=== PATIENT | female | born 1945 | race Caucasian/White ===

== ENCOUNTER 2016-06-21 16:31 | Inpatient (IN) | payer MEDICARE ==
[2016-06-21] MEDS ORDERED: RINGERS SOLUTION,LACTATED 1,000 ML IV ONE ×2 (16:49→17:57)
--- NOTE | 2016-06-21 17:34 | ER Document Report ---
ED General <ELINA ORTIZ - Last Filed: 06/21/16 20:38> - General Mode of Arrival: Medic Information source: Patient, Relative <DESMOND ISBELL Josselyn - Last Filed: 06/21/16 23:34> - General Chief Complaint: General Weakness Stated Complaint: WEAKNESS Notes: This is a 71-year-old female who [place] out of [place] but is here visiting a friend and family who was brought in by EMS after being found on the floor today. The patient tells me that she will awoke this morning at about 5:30 with chills and shivering. She states that at about 06 100 she went to the bathroom, but upon inability to the bathroom she felt dizzy lost her balance and fell backwards hitting her left shoulder. She denies hitting her head. She did not lose consciousness. She was unable to get back up and so she laid on the floor from about 6 AM until about 11:30 when her friend knocked on the door to check on her. EMS reports an oral temp of 101 and a low blood pressure of 80s over 60s. Patient states that she has not been sick recently. She denies any pain at this point. She has had no cough or congestion and no vomiting or diarrhea. She does state that she has had mild dysuria for a few days. (DESMOND ISBELL) - Related Data Allergies/Adverse Reactions: No Known Allergies Allergy (Unverified 06/21/16 18:06) Home Medications: Current Home Medications Acetaminophen [Tylenol 325 mg Tablet] 325 mg PO Q6HP PRN 06/21/16 [History] Aspirin [Aspirin 325 mg Tablet] 325 mg PO DAILY 06/21/16 [History] Bisoprolol Fumarate/Hctz [Ziac 2.5-6.25 mg Tablet] 1 tab PO QAM 06/21/16 [ History] Celecoxib [Celebrex 200 mg Capsule] 200 mg PO QAM 06/21/16 [History] Cholecalciferol (Vitamin D3) [Vitamin D3 1000 Unit Tablet] 1,000 unit PO DAILY 06/21/16 [History] Docusate Sodium [Dulcolax Stool Softener] 1 cap PO PRN PRN 06/21/16 [History] Hydrocortisone [Cortef 10 mg Tablet] 10 mg PO QPM 06/21/16 [History] Hydrocortisone [Cortef] 20 mg PO DAILY 06/21/16 [History] Lansoprazole [Prevacid 30 mg Odt Tablet] 30 mg PO QAM 06/21/16 [History] Letrozole [Femara 2.5 mg Tablet] 2.5 mg PO QPM 06/21/16 [History] Lisinopril [Prinivil 5 mg Tablet] 5 mg PO QPM 06/21/16 [History] Milnacipran HCl [Savella] 50 mg PO BID 06/21/16 [History] Multivits-Min/Iron/FA/Lutein [Centrum Silver Women Tablet] 1 tab PO DAILY [History] Pregabalin [Lyrica 75 mg Capsule] 75 mg PO Q12 06/21/16 [History] Past Medical History - General Information source: Patient - Social History Smoking Status: Never Smoker Family History: Reviewed & Not Pertinent - Past Medical History Cardiac Medical History: Reports: Hx Hypertension Endocrine Medical History: Reports: Other - Adrenal insufficiency Surgical Hx: Other - adrenalectomy <DESMOND ISBELL - Last Filed: 06/21/16 23:34> Physical Exam <ELINA ORTIZ - Last Filed: 06/21/16 20:38> <DESMOND ISBELL - Last Filed: 06/21/16 23:34> - Vital signs Vitals: Resp BP 18 88/44 L 06/21/16 16:40 06/21/16 16:40 (ELINA ORTIZ) - Notes Notes: Patient was reassessed after the second liter of lactated Ringer fluid bolus and initial had a good response with her blood pressure raising to the knot to 95-98 systolic however patient was noted to have another blood pressure in the mid 80 systolic and so decision was made to place a left internal jugular central venous catheter. This was this was placed and I discussed her diagnosis of sepsis and multiple rib fractures with the patient and the daughter. Also discussed the case with Dr. Wilner Farias who will admit her to the medical ICU here. I suspect that the source of infection is coming from the patient's urine however because of her difficult anatomy and we have been unable to place a Barrientos catheter to obtain a urine specimen as of this time. PHYSICAL EXAMINATION: GENERAL: ill appearing elderly female, flushed cheeks, seems sleepy but will respond to voice and answer questions appropriately HEAD: Atraumatic, normocephalic. EYES: Pupils equal round and reactive to light, extraocular movements intact, sclera anicteric, conjunctiva are normal. ENT: nares patent, oropharynx clear without exudates. Moist mucous membranes. NECK: Normal range of motion, supple without lymphadenopathy LUNGS: Breath sounds clear to auscultation bilaterally and equal. No wheezes rales or rhonchi. CHEST: Status post left mastectomy. Tenderness to palpation to the left anterior chest. HEART: Regular rate and rhythm without murmurs ABDOMEN: Soft, nontender, normoactive bowel sounds. No guarding, no rebound. No masses appreciated. EXTREMITIES: Normal range of motion, no pitting or edema. No cyanosis. NEUROLOGICAL: Cranial nerves grossly intact. Moves all 4 extremities spontaneously and upon command with equal strength PSYCH: Normal mood, normal affect. SKIN: Warm, Dry, normal turgor, no rashes or lesions noted. (DESMOND ISBELL) Course - Laboratory Result Diagrams: 06/21/16 16:55 06/21/16 16:55 <ELINA ORTZI - Last Filed: 06/21/16 20:38> - Laboratory Result Diagrams: 06/21/16 16:55 06/21/16 16:55 - Diagnostic Test Radiology reviewed: Reports reviewed <DESMOND ISBELL - Last Filed: 06/21/16 23:34> - Re-evaluation Re-evalutation: 06/21/16 20:52 Patient was reassessed after the second liter of lactated Ringer fluid bolus and initial had a good response with her blood pressure raising to the knot to 95-98 systolic however patient was noted to have another blood pressure in the mid 80 systolic and so decision was made to place a left internal jugular central venous catheter. This was this was placed and I discussed her diagnosis of sepsis and multiple rib fractures with the patient and the daughter. Also discussed the case with Dr. Wilner Farias who will admit her to the medical ICU here. I suspect that the source of infection is coming from the patient's urine however because of her difficult anatomy and we have been unable to place a Barrientos catheter to obtain a urine specimen as of this time. 06/21/16 21:39 Patient was reassessed. She is resting comfortably. She is breathing easy and her sats are 98% on room air. Her blood pressure has improved to 103/70. (DESMOND ISBELL) - Vital Signs Vital signs: Temp Pulse Resp BP Pulse Ox 20 100/55 L 100 06/21/16 21:41 06/21/16 21:41 06/21/16 21:41 (ELINA ORTIZ) - Laboratory Laboratory results interpreted by me: 06/21/16 06/21/16 06/21/16 16:55 16:55 16:55 WBC 26.9 H Hgb 11.5 L Hct 35.2 L Seg Neuts % (Manual) 83 H Lymphocytes % (Manual) 5 L Metamyelocytes % 1 H Abs Neuts (Manual) 23.7 H Abs Basophils (Manual) 0.3 H Potassium 3.3 L BUN 24 H Est GFR ( Amer) 59 L Est GFR (Non-Af Amer) 49 L Lactic Acid 2.5 H AST 44 H (ELINA ORTIZ) - Diagnostic Test Radiology results interpreted by me: 06/21/16 20:52 CT of the head was negative. Chest x-ray was negative for acute process. X- ray of the left shoulder demonstrated no shoulder fracture however patient is noted to have acute rib fractures of ribs 3, 4, 5, 6, 7 and possibly 8. (DESMOND ISBELL) - EKG Interpretation by Me Additional EKG results interpreted by me: 06/21/16 20:53 EKG done at 1746 demonstrates normal sinus rhythm at a rate of 72 with evidence of LVH there is no ST elevation or depression. (DESMOND ISBELL) Procedures - Central Line Left Internal jugular Time completed: 08:30 Consent obtained: Yes - verbal and written Central line pre-insertion: Sterile PPE donned, Chloraprep applied, Sterile drapes applied Central line lumen type: Triple Anesthetic type: 1% Lidocaine mL's of anesthesia: 3 Ultrasound guided: Yes CM at insertion site: 20 Line secured with sutures: Yes Central line post-insertion: Blood return from lumens, Biopatch applied, Sutured , Sterile dressing applied, Position confirmed w/ CXR Number of attempts: 1 Complications: No <ELINA ORTIZ - Last Filed: 06/21/16 20:38> Critical Care Note <ELINA ORTIZ - Last Filed: 06/21/16 20:38> - Critical Care Note Total time excluding time spent on procedures (mins): 45 <DESMOND ISBELL - Last Filed: 06/21/16 23:34> - Critical Care Note Comments: minutes of critical care time spent in direct contact evaluating and reevaluating the patient, treating symptoms, reviewing labs and studies and speaking with family and consultants excluding any procedures (DESMOND ISBELL) Discharge <ELINA ORTIZ - Last Filed: 06/21/16 20:38> - [facility] <DESMOND ISBELL - Last Filed: 06/21/16 23:34> - Discharge Clinical Impression: Sepsis associated hypotension, Multiple fractures of rib involving four or more ribs, History of adrenal insufficiency Condition: Serious Disposition: ADMITTED INPATIENT
[2016-06-21 17:37] LABS: HEMATOCRIT 35.2 % (36.0-47.0); HEMOGLOBIN 11.5 g/dL (12.0-15.5); HGB HCT DIFFERENCE -0.7; MEAN CORPUSCULAR HEMOGLOBIN 30.6 pg (27.0-33.4); MEAN CORPUSCULAR HGB CONC 32.6 g/dL (32.0-36.0); MEAN CORPUSCULAR VOLUME 94 fl (80-97); RED BLOOD COUNT 3.76 10^6/uL (3.72-5.28); RED CELL DISTRIBUTION WIDTH 12.2 % (11.5-14.0); WHITE BLOOD COUNT 26.9 10^3/uL (4.0-10.5)
[2016-06-21 17:43] LABS: PROTHROMBIN TIME 14.3 SEC (11.4-15.4)
[2016-06-21 17:44] LABS: ALANINE AMINOTRANSFERASE 38 U/L (9-52); ALKALINE PHOSPHATASE 67 U/L (38-126); ANION GAP 11 (5-19); ASPARTATE AMINO TRANSFERASE 44 U/L (14-36); BILIRUBIN,TOTAL 0.8 mg/dL (0.2-1.3); BLOOD UREA NITROGEN 24 mg/dL (7-20); CALCIUM 9.4 mg/dL (8.4-10.2); CARBON DIOXIDE 28 mmol/L (22-30); CHLORIDE 100 mmol/L (98-107); GLUCOSE 84 mg/dL (75-110); POTASSIUM 3.3 mmol/L (3.6-5.0); SODIUM 138.7 mmol/L (137-145); TOTAL PROTEIN 6.7 g/dL (6.3-8.2)
[2016-06-21] MEDS ORDERED: CEFTRIAXONE 1 GM/D5W RTU 50 ML IV ONE (17:55)
[2016-06-21] MEDS ORDERED: HYDROCORTISONE SOD SUCCINATE INJ/PF 100 MG/2 ML SDV IV ONE (17:56)
[2016-06-21 18:05] LABS: BAND NEUTROPHILS % (MANUAL) 4 % (3-5); BASOPHILS % (MANUAL) 1 % (0-2); EOSINOPHILS % (MANUAL) 0 % (0-6); LYMPHOCYTES % (MANUAL) 5 % (13-45); TOTAL CELLS COUNTED 100
[2016-06-21 18:07] LABS: OVALOCYTES SLIGHT; POIKILOCYTOSIS SLIGHT
[2016-06-21] MEDS ORDERED: LEVOFLOXACIN 750 MG/D5W RTU 150 ML IV ONE (19:04)
[2016-06-21 20:51] LABS: VENOUS BLOOD BASE EXCESS 1.2 mmol/L; VENOUS BLOOD HCO3 25.9 mmol/L (20-32); VENOUS BLOOD PCO2 41.2 mmHg (35-63); VENOUS BLOOD PH 7.42 (7.30-7.42)
[2016-06-21] MEDS ORDERED: IPRATROPIUM/ALBUTEROL 0.5-2.5 MG/3 ML AMPUL NEB PRN (20:53)
[2016-06-21] MEDS ORDERED: HYDRALAZINE HCL INJ/PF 20 MG/1 ML SDV IV PRN (20:53)
[2016-06-21] MEDS ORDERED: ONDANSETRON HCL INJ/PF 4 MG/2 ML SDV IV PRN (20:53)
[2016-06-21] MEDS ORDERED: ACETAMINOPHEN 325 MG TABLET PO PRN (20:53)
[2016-06-21] MEDS ORDERED: MAGNESIUM HYDROXIDE SUSP 30 ML UDCUP PO PRN (20:53)
[2016-06-21] MEDS ORDERED: POTASSIUM CHLORIDE 10 MEQ TABLET.SA PO ONE (20:53)
[2016-06-21] MEDS ORDERED: VANCOMYCIN HCL 1,500 MG in DEXTROSE 5%-WATER 250 ML IV ONE (21:18)
[2016-06-21] MEDS ORDERED: VANCOMYCIN HCL 0 MG in DEXTROSE 5%-WATER 250 ML IV NR (21:30)
[2016-06-21] MEDS ORDERED: VANCOMYCIN HCL 750 MG in DEXTROSE 5%-WATER 250 ML IV SCH (22:00)
--- NOTE | 2016-06-21 22:17 | EKG REPORT ---
SEVERITY:- ABNORMAL ECG - SINUS RHYTHM LEFT VENTRICULAR HYPERTROPHY : Confirmed by: Niya Pagan 21-Jun-2016 22:16:44
[2016-06-21] MEDS: HYDROCORTISONE SOD SUCCINATE INJ/PF 100 MG/2 ML SDV IV SCH (22:20)
[2016-06-21] MEDS: NORMAL SALINE 1000 ML 1,000 ML IV SCH (22:21)
[2016-06-21] MEDS: HEPARIN SOD (PORCINE) 5,000 UNIT/ML 1 ML SYRINGE SUBCUT SCH (22:24)
[2016-06-22 00:23] LABS: APPEARANCE,URINE CLOUDY; BILIRUBIN,URINE NEGATIVE (NEGATIVE); GLUCOSE, URINE NEGATIVE (NEGATIVE); KETONES,URINE TRACE mg/dL (NEGATIVE); LEUKOCYTE ESTERASE,URINE TRACE (NEGATIVE); NITRITE,URINE NEGATIVE (NEGATIVE); PROTEIN,URINE 30 mg/dL (NEGATIVE); URINE SPECIFIC GRAVITY 1.014; UROBILINOGEN,URINE NEGATIVE mg/dL (<2.0)
[2016-06-22] MEDS: NORMAL SALINE 1000 ML 1,000 ML IV SCH ×2 (03:13→07:07)
[2016-06-22 04:50] LABS: ANION GAP 9 (5-19); BLOOD UREA NITROGEN 21 mg/dL (7-20); CALCIUM 8.6 mg/dL (8.4-10.2); CARBON DIOXIDE 23 mmol/L (22-30); CHLORIDE 106 mmol/L (98-107); CREATININE RESULT 0.68 mg/dL (0.52-1.25); GLUCOSE 111 mg/dL (75-110); POTASSIUM 4.2 mmol/L (3.6-5.0); SODIUM 138.2 mmol/L (137-145)
--- NOTE | 2016-06-22 04:55 | PDOC H&P ---
History of Present Illness Admission Date/PCP: 06/21/16 20:53 Patient complains of: Hypotension and fever History of Present Illness: ASA CARLSON is a 71 year old female with a past Sunil history of adrenal insufficiency, rest cancer status post left-sided mastectomy remotely, pulmonary emboli and fibromyalgia. Who had been her usual state of health until approximately 48 hours prior to presentation state she had some generalized weakness and fever of 101.0. She attributed this to a possible urinary tract infection despite lack of polyuria, dysuria or malodorous urine. She subsequently sustained a fall preceded by weakness and dizziness without palpitations or headache, and denied loss of consciousness or head trauma. However she was unable to stand and was on the ground for at least 3 hours and brought to the emergency room after discovered by her neighbor with questionable slurred speech and left-sided chest pain. In the emergency room she is found to have hypotension in the 80s systolic with tachycardia and left- sided rib fractures [id number] and 8 without a flail chest. Nor is there an obvious source of infection despite an elevated white blood cell count of 27. She started on an IV fluid challenge IV Solu-Cortef IV antibiotics and referred to the hospitalist for admission. Patient otherwise denies recent fall, she was treated for a right-sided dental abscess approximately a month ago which has subsequently resolved she denies any change in home medications. She appears nontoxic Past Medical History Endocrine Medical History: Reports: Other - Adrenal insufficiency Malignancy Medical History: Reports: Breast Cancer Musculoskeltal Medical History: Reports: Arthritis - OA Psychiatric Medical History: Reports: Other - Fibromyalgia Past Surgical History Past Surgical History: Reports: Mastectomy Social History Information Source: Patient, Relative Lives with: Family Smoking Status: Never Smoker Frequency of Alcohol Use: Rare Hx Recreational Drug Use: No Drugs: None Hx Prescription Drug Abuse: No - Advance Directive Resuscitation Status: Full Code Family History Family History: Reviewed & Not Pertinent, Hypertension Parental Family History Reviewed: Yes Children Family History Reviewed: Yes Sibling(s) Family History Reviewed.: Yes Medication/Allergy Home Medications: Acetaminophen [Tylenol 325 mg Tablet] 325 mg PO Q6HP PRN 06/21/16 Aspirin [Aspirin 325 mg Tablet] 325 mg PO DAILY 06/21/16 Bisoprolol Fumarate/Hctz [Ziac 2.5-6.25 mg Tablet] 1 tab PO QAM 06/21/16 Celecoxib [Celebrex 200 mg Capsule] 200 mg PO QAM 06/21/16 Cholecalciferol (Vitamin D3) [Vitamin D3 1000 Unit Tablet] 1,000 unit PO DAILY 06/21/16 Docusate Sodium [Dulcolax Stool Softener] 1 cap PO PRN PRN 06/21/16 Hydrocortisone [Cortef 10 mg Tablet] 10 mg PO QPM 06/21/16 Hydrocortisone [Cortef] 20 mg PO DAILY 06/21/16 Lansoprazole [Prevacid 30 mg Odt Tablet] 30 mg PO QAM 06/21/16 Letrozole [Femara 2.5 mg Tablet] 2.5 mg PO QPM 06/21/16 Lisinopril [Prinivil 5 mg Tablet] 5 mg PO QPM 06/21/16 Milnacipran HCl [Savella] 50 mg PO BID 06/21/16 Multivits-Min/Iron/FA/Lutein [Centrum Silver Women Tablet] 1 tab PO DAILY Pregabalin [Lyrica 75 mg Capsule] 75 mg PO Q12 06/21/16 Allergies/Adverse Reactions: No Known Allergies Allergy (Unverified 06/21/16 18:06) Review of Systems Constitutional: ABSENT: chills, fever(s), headache(s), weight gain, weight loss Eyes: ABSENT: visual disturbances Ears: ABSENT: hearing changes Cardiovascular: ABSENT: chest pain, dyspnea on exertion, edema, orthropnea, palpitations Respiratory: ABSENT: cough, hemoptysis Gastrointestinal: ABSENT: abdominal pain, constipation, diarrhea, hematemesis, hematochezia, nausea, vomiting Genitourinary: ABSENT: dysuria, hematuria Musculoskeletal: ABSENT: joint swelling Integumentary: ABSENT: rash, wounds Neurological: ABSENT: abnormal gait, abnormal speech, confusion, dizziness, focal weakness, syncope Psychiatric: ABSENT: anxiety, depression, homidical ideation, suicidal ideation Endocrine: ABSENT: cold intolerance, heat intolerance, polydipsia, polyuria Hematologic/Lymphatic: ABSENT: easy bleeding, easy bruising Physical Exam Vital Signs: Temp Pulse Resp BP Pulse Ox 97.8 F 74 16 96/53 L 98 06/22/16 03:11 06/22/16 03:11 06/22/16 03:11 06/22/16 03:11 06/22/16 03:11 General appearance: PRESENT: cooperative, mild distress. ABSENT: disheveled, hard of hearing Head exam: PRESENT: atraumatic, normocephalic Eye exam: PRESENT: conjunctiva pink, EOMI, PERRLA. ABSENT: scleral icterus Ear exam: PRESENT: normal external ear exam Mouth exam: PRESENT: moist, tongue midline Neck exam: ABSENT: carotid bruit, JVD, lymphadenopathy, thyromegaly Respiratory exam: PRESENT: chest wall tenderness, crackles, tachypnea. ABSENT: prolonged expiratory phas, rales, retraction, rhonchi, stridor, symmetrical Cardiovascular exam: PRESENT: RRR. ABSENT: diastolic murmur, rubs, systolic murmur Pulses: PRESENT: normal dorsalis pedis pul Vascular exam: PRESENT: pallor GI/Abdominal exam: PRESENT: normal bowel sounds, soft. ABSENT: distended, guarding, mass, organolmegaly, rebound, tenderness Rectal exam: PRESENT: deferred Extremities exam: PRESENT: full ROM. ABSENT: calf tenderness, clubbing, pedal edema Neurological exam: PRESENT: alert, awake, oriented to person, oriented to place , oriented to time, oriented to situation, CN II-XII grossly intact. ABSENT: motor sensory deficit Psychiatric exam: PRESENT: appropriate affect, normal mood. ABSENT: homicidal ideation, suicidal ideation Skin exam: PRESENT: dry, intact, warm. ABSENT: cyanosis, rash Results Laboratory Results: 06/21/16 06/21/16 21:43 23:54 Lactic Acid 0.9 Urine Color YELLOW Urine Appearance CLOUDY Urine pH 5.0 Ur Specific [place] 1.014 Urine Protein 30 H Urine Glucose (UA) NEGATIVE Urine Ketones TRACE H Urine Blood SMALL H Urine Nitrite NEGATIVE Ur Leukocyte Esterase TRACE H Urine WBC (Auto) 11 Urine RBC (Auto) 2 Impressions: Head CT 06/21/16 17:51 IMPRESSION: MILD CHRONIC CHANGES OF ATROPHY AND MICROVASCULAR ISCHEMIA. NO ACUTE PROCESS. Shoulder X-Ray 06/21/16 17:54 IMPRESSION: 1. Osteopenia. 2. Multiple left-sided rib fractures. Chest X-Ray 06/21/16 20:33 IMPRESSION: New left IJ central venous catheter with tip overlying the RA -SVC junction. No pneumothorax or acute findings otherwise. Assessment & Plan - Diagnosis (1) Sepsis associated hypotension Is this a current diagnosis for this admission?: YesPlan: Unclear source given her complicated history of adrenal insufficiency she is on broad-spectrum antibiotics and IV fluid challenge, follow-up blood culture and labs. (2) History of adrenal insufficiency Is this a current diagnosis for this admission?: YesPlan: Given acute distress and hypotension she is on stress dose Solu-Cortef IV (3) Multiple fractures of rib involving four or more ribs Is this a current diagnosis for this admission?: YesPlan: Supportive care and incentive spirometry (4) Pulmonary emboli Is this a current diagnosis for this admission?: YesPlan: It is unclear whether her leukocytosis is result of her fall and a stress response as she is without fever, given a history of pulmonary emboli not on anticoagulation differential diagnosis of hypotension includes recurrent PE and subsequently will obtain a CTA for evaluation
[2016-06-22] MEDS: HYDROCORTISONE SOD SUCCINATE INJ/PF 100 MG/2 ML SDV IV SCH ×2 (05:54→17:45)
[2016-06-22] MEDS: HEPARIN SOD (PORCINE) 5,000 UNIT/ML 1 ML SYRINGE SUBCUT SCH ×3 (05:54→23:07)
[2016-06-22 05:59] LABS: HEMATOCRIT 28.5 % (36.0-47.0); HEMOGLOBIN 9.6 g/dL (12.0-15.5); HGB HCT DIFFERENCE 0.3; MEAN CORPUSCULAR HEMOGLOBIN 31.5 pg (27.0-33.4); MEAN CORPUSCULAR HGB CONC 33.7 g/dL (32.0-36.0); MEAN CORPUSCULAR VOLUME 93 fl (80-97); RED BLOOD COUNT 3.06 10^6/uL (3.72-5.28); RED CELL DISTRIBUTION WIDTH 12.3 % (11.5-14.0)
[2016-06-22 06:52] LABS: BAND NEUTROPHILS % (MANUAL) 2 % (3-5); BASOPHILS % (MANUAL) 0 % (0-2); EOSINOPHILS % (MANUAL) 0 % (0-6); LYMPHOCYTES % (MANUAL) 8 % (13-45); TOTAL CELLS COUNTED 100
[2016-06-22 06:54] LABS: OVALOCYTES SLIGHT; PLATELET CLUMPS PRESENT; TOXIC VACUOLATION PRESENT
[2016-06-22] MEDS ORDERED: IPRATROPIUM/ALBUTEROL 0.5-2.5 MG/3 ML AMPUL NEB SCH (08:00)
[2016-06-22] MEDS ORDERED: OXYCODONE HCL IR 5 MG TABLET PO PRN (10:05)
[2016-06-22] MEDS: LANSOPRAZOLE 30 MG TAB.RAP.DR PO SCH (10:41)
[2016-06-22] MEDS: ASPIRIN 325 MG TABLET PO SCH (10:42)
[2016-06-22] MEDS: DOCUSATE SODIUM 100 MG CAPSULE PO SCH ×2 (10:42→17:46)
[2016-06-22] MEDS: VANCOMYCIN HCL 750 MG in DEXTROSE 5%-WATER 250 ML IV SCH ×2 (10:44→23:06)
[2016-06-22] MEDS ORDERED: DOCUSATE SODIUM 100 MG CAPSULE PO PRN (13:14)
[2016-06-22] MEDS ORDERED: ACETAMINOPHEN 325 MG TABLET PO PRN (13:14)
--- NOTE | 2016-06-22 13:22 | PDOC PROGRESS REPORT ---
Subjective Progress Note for:: 06/22/16 Subjective:: Patient is complaining of pain left chest wall when she moves No pleuritic chest pain no palpitations no fever no chills Her blood pressure is now normal She has no dysuria no abdominal pain Physical Exam Vital Signs: Temp Pulse Resp BP Pulse Ox 99.2 F 82 18 123/57 L 100 06/22/16 11:22 06/22/16 11:22 06/22/16 11:22 06/22/16 11:22 06/22/16 11:22 Intake & Output 06/21/16 06/22/16 06/23/16 00:59 00:59 00:59 Intake Total 2155 Output Total 1700 Balance 455 Weight 88.8 kg General appearance: PRESENT: no acute distress, cooperative, other - Overweight Head exam: PRESENT: atraumatic, normocephalic Eye exam: PRESENT: conjunctiva pink, EOMI, PERRLA. ABSENT: scleral icterus Neck exam: ABSENT: carotid bruit, JVD, lymphadenopathy, thyromegaly Respiratory exam: PRESENT: clear to auscultation taryn, other - Tenderness on palpation left anterior posterior chest wall. ABSENT: rales, rhonchi, wheezes Cardiovascular exam: PRESENT: RRR. ABSENT: diastolic murmur, rubs, systolic murmur GI/Abdominal exam: PRESENT: normal bowel sounds, soft. ABSENT: distended, guarding, mass, organolmegaly, rebound, tenderness Extremities exam: PRESENT: full ROM. ABSENT: calf tenderness, clubbing, pedal edema Neurological exam: PRESENT: alert, awake, oriented to person, oriented to place , oriented to time, oriented to situation, CN II-XII grossly intact. ABSENT: motor sensory deficit Psychiatric exam: PRESENT: appropriate affect, normal mood. ABSENT: homicidal ideation, suicidal ideation Results Laboratory Results: 06/22/16 05:30 06/22/16 04:10 06/21/16 06/21/16 06/22/16 21:43 23:54 04:10 WBC RBC Hgb Hct MCV MCH MCHC RDW Plt Count Seg Neutrophils % Lymphocytes % Monocytes % Eosinophils % Basophils % Absolute Neutrophils Absolute Lymphocytes Absolute Monocytes Absolute Eosinophils Absolute Basophils Sodium 138.2 Potassium 4.2 Chloride 106 Carbon Dioxide 23 Anion Gap 9 BUN 21 H Creatinine 0.68 Est GFR ( Amer) > 60 Est GFR (Non-Af Amer) > 60 Glucose 111 H Lactic Acid 0.9 Calcium 8.6 Urine Color YELLOW Urine Appearance CLOUDY Urine pH 5.0 Ur Specific [place] 1.014 Urine Protein 30 H Urine Glucose (UA) NEGATIVE Urine Ketones TRACE H Urine Blood SMALL H Urine Nitrite NEGATIVE Ur Leukocyte Esterase TRACE H Urine WBC (Auto) 11 Urine RBC (Auto) 2 06/22/16 05:30 WBC 26.0 H RBC 3.06 L Hgb 9.6 L Hct 28.5 L MCV 93 MCH 31.5 MCHC 33.7 RDW 12.3 Plt Count 143 L Seg Neutrophils % Not Reportable Lymphocytes % Not Reportable Monocytes % Not Reportable Eosinophils % Not Reportable Basophils % Not Reportable Absolute Neutrophils Not Reportable Absolute Lymphocytes Not Reportable Absolute Monocytes Not Reportable Absolute Eosinophils Not Reportable Absolute Basophils Not Reportable Sodium Potassium Chloride Carbon Dioxide Anion Gap BUN Creatinine Est GFR ( Amer) Est GFR (Non-Af Amer) Glucose Lactic Acid Calcium Urine Color Urine Appearance Urine pH Ur Specific [place] Urine Protein Urine Glucose (UA) Urine Ketones Urine Blood Urine Nitrite Ur Leukocyte Esterase Urine WBC (Auto) Urine RBC (Auto) Impressions: Head CT 06/21/16 17:51 IMPRESSION: MILD CHRONIC CHANGES OF ATROPHY AND MICROVASCULAR ISCHEMIA. NO ACUTE PROCESS. Shoulder X-Ray 06/21/16 17:54 IMPRESSION: 1. Osteopenia. 2. Multiple left-sided rib fractures. Chest X-Ray 06/21/16 20:33 IMPRESSION: New left IJ central venous catheter with tip overlying the RA -SVC junction. No pneumothorax or acute findings otherwise. Chest/Abdomen CTA 06/22/16 00:00 IMPRESSION: No CT angio evidence of acute pulmonary emboli or thoracic aortic dissection. Multiple acute nondisplaced left posterior rib fractures. Left scapular wing fracture. Post therapeutic changes with left mastectomy 4.3 x 4.2 cm mass left lower pole thyroid. Assessment & Plan - Diagnosis (1) History of adrenal insufficiency Is this a current diagnosis for this admission?: YesPlan: Continue high dose steroids hydrocortisone at 50 mg IV every 8 (2) Multiple fractures of rib involving four or more ribs Is this a current diagnosis for this admission?: YesPlan: Fractured 4 ribs and fracture of the scapula Patient does have musculoskeletal pain no breathing difficulties There is no evidence of pneumothorax on the CAT scan, and no pulmonary emboli Continue incentive spirometry and oxycodonep; repeat chest x-ray in a.m. (3) Sepsis associated hypotension Is this a current diagnosis for this admission?: YesPlan: Hypotension may have been secondary to adrenal insufficiency and sepsis Patient does have leukocytosis with a white blood count of more than 20,000 no obvious source of sepsis; she gives a history dysuria and chills prior to fall We will continue Levaquin and ceftriaxone Reevaluate patient in a.m. - Time Time Spent with patient: 25-34 minutes
[2016-06-22] MEDS: OXYCODONE HCL IR 5 MG TABLET PO PRN ×2 (14:01→17:46)
[2016-06-22] MEDS: LISINOPRIL 5 MG TABLET PO SCH (17:46)
[2016-06-22] MEDS: LETROZOLE 2.5 MG TABLET PO SCH (17:47)
[2016-06-22] MEDS ORDERED: (PENDING PHARMACY ID) (Milnacipran Hcl [Savella] 50 MG) PO SCH (18:00)
[2016-06-22] MEDS: KETOROLAC TROMETHAMINE INJ/PF 30 MG/1 ML SDV IV PRN (18:35)
[2016-06-22] MEDS: PREGABALIN 75 MG CAPSULE PO SCH (23:07)
[2016-06-23] MEDS: HYDROCORTISONE SOD SUCCINATE INJ/PF 100 MG/2 ML SDV IV SCH ×3 (02:22→17:16)
[2016-06-23] MEDS: KETOROLAC TROMETHAMINE INJ/PF 30 MG/1 ML SDV IV PRN ×3 (02:22→22:11)
[2016-06-23 05:59] LABS: HEMATOCRIT 28.7 % (36.0-47.0); HEMOGLOBIN 9.6 g/dL (12.0-15.5); HGB HCT DIFFERENCE 0.1; MEAN CORPUSCULAR HEMOGLOBIN 31.1 pg (27.0-33.4); MEAN CORPUSCULAR HGB CONC 33.6 g/dL (32.0-36.0); MEAN CORPUSCULAR VOLUME 93 fl (80-97); RED BLOOD COUNT 3.09 10^6/uL (3.72-5.28); RED CELL DISTRIBUTION WIDTH 12.5 % (11.5-14.0)
[2016-06-23 06:18] LABS: ANION GAP 6 (5-19); BLOOD UREA NITROGEN 19 mg/dL (7-20); CALCIUM 8.8 mg/dL (8.4-10.2); CARBON DIOXIDE 27 mmol/L (22-30); CHLORIDE 107 mmol/L (98-107); CREATININE RESULT 0.57 mg/dL (0.52-1.25); GLUCOSE 99 mg/dL (75-110); POTASSIUM 3.7 mmol/L (3.6-5.0); SODIUM 140.3 mmol/L (137-145)
[2016-06-23] MEDS: HEPARIN SOD (PORCINE) 5,000 UNIT/ML 1 ML SYRINGE SUBCUT SCH ×3 (06:21→22:01)
[2016-06-23 06:39] LABS: BASOPHILS % (MANUAL) 0 % (0-2); EOSINOPHILS % (MANUAL) 0 % (0-6); LYMPHOCYTES % (MANUAL) 2 % (13-45); TOTAL CELLS COUNTED 100
[2016-06-23 06:41] LABS: RBC MORPHOLOGY COMMENT NORMO-CYTIC/CHROMIC
[2016-06-23] MEDS: LANSOPRAZOLE 30 MG TAB.RAP.DR PO SCH (07:50)
[2016-06-23] MEDS ORDERED: HCTZ PO SCH (08:00)
[2016-06-23] MEDS ORDERED: BISOPROLOL FUMARATE PO SCH (08:00)
[2016-06-23] MEDS: MULTIVITAMIN TABLET PO SCH (09:24)
[2016-06-23] MEDS: DOCUSATE SODIUM 100 MG CAPSULE PO SCH ×2 (09:24→17:16)
[2016-06-23] MEDS: PREGABALIN 75 MG CAPSULE PO SCH ×2 (09:24→22:01)
[2016-06-23] MEDS: CHOLECALCIFEROL (D3) 1,000 UNIT TABLET PO SCH (09:24)
[2016-06-23] MEDS: ASPIRIN 325 MG TABLET PO SCH (09:24)
[2016-06-23] MEDS: VANCOMYCIN HCL 750 MG in DEXTROSE 5%-WATER 250 ML IV SCH ×2 (09:26→22:01)
[2016-06-23] MEDS ORDERED: (PENDING PHARMACY ID) (Multivits-Min/Iron/Fa/Lutein [Centrum Silver Women Tablet] 1 TAB) PO SCH (10:00)
[2016-06-23] MEDS: OXYCODONE HCL IR 5 MG TABLET PO PRN (12:13)
--- NOTE | 2016-06-23 15:03 | PDOC PROGRESS REPORT ---
Subjective Progress Note for:: 06/23/16 Subjective:: Patient is still having considerable pain in the left chest She was able to sit up She has no shortness of breath no fever no chills She could not ambulate She is using the incentive spirometer Repeat chest x-ray shows just a very small effusion, no pneumothorax Physical Exam Vital Signs: Temp Pulse Resp BP Pulse Ox 98.5 F 82 19 143/71 H 99 06/23/16 11:15 06/23/16 14:00 06/23/16 11:15 06/23/16 11:15 06/23/16 11:15 Intake & Output 06/22/16 06/23/16 06/24/16 00:59 00:59 00:59 Intake Total 4081 924 Output Total 2050 225 Balance 2030 699 Weight 88.8 kg 91.4 kg General appearance: PRESENT: no acute distress Head exam: PRESENT: atraumatic, normocephalic Eye exam: PRESENT: conjunctiva pink, EOMI, PERRLA. ABSENT: scleral icterus Neck exam: ABSENT: carotid bruit, JVD, lymphadenopathy, thyromegaly Respiratory exam: PRESENT: clear to auscultation taryn, unlabored. ABSENT: accessory muscle use Cardiovascular exam: PRESENT: RRR. ABSENT: diastolic murmur, rubs, systolic murmur Pulses: PRESENT: normal dorsalis pedis pul GI/Abdominal exam: PRESENT: normal bowel sounds, soft. ABSENT: distended, guarding, mass, organolmegaly, rebound, tenderness Extremities exam: PRESENT: full ROM. ABSENT: calf tenderness, clubbing, pedal edema Neurological exam: PRESENT: alert, awake, oriented to person, oriented to place , oriented to time, oriented to situation, CN II-XII grossly intact. ABSENT: motor sensory deficit Results Laboratory Results: 06/23/16 05:20 06/23/16 05:20 06/23/16 06/23/16 06/23/16 05:20 05:20 05:20 WBC 24.0 H RBC 3.09 L Hgb 9.6 L Hct 28.7 L MCV 93 MCH 31.1 MCHC 33.6 RDW 12.5 Plt Count 173 Seg Neutrophils % Not Reportable Lymphocytes % Not Reportable Monocytes % Not Reportable Eosinophils % Not Reportable Basophils % Not Reportable Absolute Neutrophils Not Reportable Absolute Lymphocytes Not Reportable Absolute Monocytes Not Reportable Absolute Eosinophils Not Reportable Absolute Basophils Not Reportable Sodium 140.3 Potassium 3.7 Chloride 107 Carbon Dioxide 27 Anion Gap 6 BUN 19 Creatinine 0.57 Est GFR ( Amer) > 60 Est GFR (Non-Af Amer) > 60 Glucose 99 Calcium 8.8 C-Reactive Protein 183.8 H Impressions: Head CT 06/21/16 17:51 IMPRESSION: MILD CHRONIC CHANGES OF ATROPHY AND MICROVASCULAR ISCHEMIA. NO ACUTE PROCESS. Shoulder X-Ray 06/21/16 17:54 IMPRESSION: 1. Osteopenia. 2. Multiple left-sided rib fractures. Chest/Abdomen CTA 06/22/16 00:00 IMPRESSION: No CT angio evidence of acute pulmonary emboli or thoracic aortic dissection. Multiple acute nondisplaced left posterior rib fractures. Left scapular wing fracture. Post therapeutic changes with left mastectomy 4.3 x 4.2 cm mass left lower pole thyroid. Chest X-Ray 06/23/16 00:00 IMPRESSION: Interval small left effusion and basilar opacities. No pneumothorax. Venous access catheter unchanged. Left rib fractures cannot be visualized on chest radiograph. Assessment & Plan - Diagnosis (1) History of adrenal insufficiency Is this a current diagnosis for this admission?: YesPlan: We will continue hydrocortisone Decrease doses is slowly Patient's blood pressures maintained (2) Multiple fractures of rib involving four or more ribs Is this a current diagnosis for this admission?: YesPlan: No evidence of pulmonary contusion and or pneumothorax Continue incentive spirometer Continue symptomatic management with opiates (3) Sepsis associated hypotension Is this a current diagnosis for this admission?: YesPlan: The urinalysis shows gram-positive cocci which may be the source of sepsis We have initiated vancomycin ; we'll reevaluate when culture is available White blood count is still extremely elevated over 20,000 (4) Severe pain Is this a current diagnosis for this admission?: YesPlan: Patient is unable to ambulate She has not been evaluated yet by physical therapy We will ask for PT consult in a.m.. And reevaluate patient's needs - Time Time Spent with patient: 25-34 minutes
[2016-06-23] MEDS: LETROZOLE 2.5 MG TABLET PO SCH (17:16)
[2016-06-23] MEDS: LISINOPRIL 5 MG TABLET PO SCH (17:16)
[2016-06-23 22:13] LABS: CREATININE RESULT 0.65 mg/dL (0.52-1.25)
[2016-06-24] MEDS: HYDROCORTISONE SOD SUCCINATE INJ/PF 100 MG/2 ML SDV IV SCH ×3 (01:24→17:54)
[2016-06-24 05:19] LABS: MEAN CORPUSCULAR HEMOGLOBIN 31.3 pg (27.0-33.4); MEAN CORPUSCULAR HGB CONC 33.4 g/dL (32.0-36.0); MEAN CORPUSCULAR VOLUME 94 fl (80-97); RED BLOOD COUNT 2.88 10^6/uL (3.72-5.28); RED CELL DISTRIBUTION WIDTH 12.3 % (11.5-14.0); WHITE BLOOD COUNT 16.5 10^3/uL (4.0-10.5)
[2016-06-24] MEDS: HEPARIN SOD (PORCINE) 5,000 UNIT/ML 1 ML SYRINGE SUBCUT SCH ×3 (05:19→21:04)
[2016-06-24 05:47] LABS: ANION GAP 7 (5-19); BLOOD UREA NITROGEN 21 mg/dL (7-20); CALCIUM 8.5 mg/dL (8.4-10.2); CARBON DIOXIDE 26 mmol/L (22-30); CHLORIDE 107 mmol/L (98-107); CREATININE RESULT 0.63 mg/dL (0.52-1.25); GLUCOSE 103 mg/dL (75-110); POTASSIUM 3.7 mmol/L (3.6-5.0); SODIUM 140.2 mmol/L (137-145)
[2016-06-24 05:58] LABS: BASOPHILS % (MANUAL) 0 % (0-2); EOSINOPHILS % (MANUAL) 0 % (0-6); LYMPHOCYTES % (MANUAL) 3 % (13-45); RBC MORPHOLOGY COMMENT NORMO-CYTIC/CHROMIC; TOTAL CELLS COUNTED 100
[2016-06-24] MEDS: LANSOPRAZOLE 30 MG TAB.RAP.DR PO SCH (08:24)
[2016-06-24] MEDS: CHOLECALCIFEROL (D3) 1,000 UNIT TABLET PO SCH (09:27)
[2016-06-24] MEDS: DOCUSATE SODIUM 100 MG CAPSULE PO SCH ×2 (09:27→17:54)
[2016-06-24] MEDS: ASPIRIN 325 MG TABLET PO SCH (09:27)
[2016-06-24] MEDS: MULTIVITAMIN TABLET PO SCH (09:27)
[2016-06-24] MEDS: PREGABALIN 75 MG CAPSULE PO SCH ×2 (09:27→21:05)
[2016-06-24] MEDS: KETOROLAC TROMETHAMINE INJ/PF 30 MG/1 ML SDV IV PRN ×2 (09:28→17:55)
[2016-06-24] MEDS: VANCOMYCIN HCL 1,500 MG in DEXTROSE 5%-WATER 250 ML IV SCH ×2 (09:30→21:05)
[2016-06-24] MEDS: OXYCODONE HCL IR 5 MG TABLET PO PRN (14:10)
--- NOTE | 2016-06-24 16:34 | PDOC PROGRESS REPORT ---
Subjective Progress Note for:: 06/24/16 Subjective:: Patient's pain is a little bit more under control She is able to sit up with help She has no abdominal pain no dysuria Urine culture was positive for gram-positive cocci and vancomycin was initiated Physical Exam Vital Signs: Temp Pulse Resp BP Pulse Ox 98.5 F 87 18 129/92 H 98 06/24/16 12:05 06/24/16 12:05 06/24/16 12:05 06/24/16 12:05 06/24/16 12:05 Intake & Output 06/23/16 06/24/16 06/25/16 00:59 00:59 00:59 Intake Total 4081 2347 610 Output Total 2050 925 Balance 203 1422 610 Weight 88.8 kg 91.4 kg 90.1 kg General appearance: PRESENT: no acute distress, well-developed, well-nourished Head exam: PRESENT: atraumatic, normocephalic Eye exam: PRESENT: conjunctiva pink, EOMI, PERRLA. ABSENT: scleral icterus Ear exam: PRESENT: normal external ear exam Mouth exam: PRESENT: moist, tongue midline Neck exam: ABSENT: carotid bruit, JVD, lymphadenopathy, thyromegaly Respiratory exam: PRESENT: chest wall tenderness - Over the left chest wall, clear to auscultation taryn. ABSENT: rales, rhonchi, wheezes Cardiovascular exam: PRESENT: RRR. ABSENT: diastolic murmur, rubs, systolic murmur Pulses: PRESENT: normal dorsalis pedis pul Vascular exam: PRESENT: normal capillary refill GI/Abdominal exam: PRESENT: normal bowel sounds, soft. ABSENT: distended, guarding, mass, organolmegaly, rebound, tenderness Rectal exam: PRESENT: deferred Extremities exam: PRESENT: full ROM. ABSENT: calf tenderness, clubbing, pedal edema Neurological exam: PRESENT: alert, awake, oriented to person, oriented to place , oriented to time, oriented to situation, CN II-XII grossly intact. ABSENT: motor sensory deficit Psychiatric exam: PRESENT: appropriate affect, normal mood. ABSENT: homicidal ideation, suicidal ideation Skin exam: PRESENT: dry, intact, warm. ABSENT: cyanosis, rash Results Laboratory Results: 06/24/16 03:55 06/24/16 03:55 06/23/16 06/24/16 06/24/16 21:50 03:55 03:55 WBC 16.5 H RBC 2.88 L Hgb 9.0 L Hct 27.0 L MCV 94 MCH 31.3 MCHC 33.4 RDW 12.3 Plt Count 161 Seg Neutrophils % Not Reportable Lymphocytes % Not Reportable Monocytes % Not Reportable Eosinophils % Not Reportable Basophils % Not Reportable Absolute Neutrophils Not Reportable Absolute Lymphocytes Not Reportable Absolute Monocytes Not Reportable Absolute Eosinophils Not Reportable Absolute Basophils Not Reportable Sodium 140.2 Potassium 3.7 Chloride 107 Carbon Dioxide 26 Anion Gap 7 BUN 21 H Creatinine 0.65 0.63 Est GFR ( Amer) > 60 > 60 Est GFR (Non-Af Amer) > 60 > 60 Glucose 103 Calcium 8.5 Impressions: Head CT 06/21/16 17:51 IMPRESSION: MILD CHRONIC CHANGES OF ATROPHY AND MICROVASCULAR ISCHEMIA. NO ACUTE PROCESS. Shoulder X-Ray 06/21/16 17:54 IMPRESSION: 1. Osteopenia. 2. Multiple left-sided rib fractures. Chest/Abdomen CTA 06/22/16 00:00 IMPRESSION: No CT angio evidence of acute pulmonary emboli or thoracic aortic dissection. Multiple acute nondisplaced left posterior rib fractures. Left scapular wing fracture. Post therapeutic changes with left mastectomy 4.3 x 4.2 cm mass left lower pole thyroid. Chest X-Ray 06/23/16 00:00 IMPRESSION: Interval small left effusion and basilar opacities. No pneumothorax. Venous access catheter unchanged. Left rib fractures cannot be visualized on chest radiograph. Assessment & Plan - Diagnosis (1) History of adrenal insufficiency Is this a current diagnosis for this admission?: Yes (2) Multiple fractures of rib involving four or more ribs Is this a current diagnosis for this admission?: Yes (3) Sepsis associated hypotension Is this a current diagnosis for this admission?: Yes (4) Severe pain Is this a current diagnosis for this admission?: Yes - Time Time Spent with patient: Patient wishes to go to rehabilitation in [place] and would like to go to [facility] Continue same management Time Spent with patient: 25-34 minutes
[2016-06-24] MEDS: LISINOPRIL 5 MG TABLET PO SCH (17:54)
[2016-06-24] MEDS: LETROZOLE 2.5 MG TABLET PO SCH (17:54)
[2016-06-25] MEDS: HYDROCORTISONE SOD SUCCINATE INJ/PF 100 MG/2 ML SDV IV SCH ×3 (01:59→22:33)
[2016-06-25] MEDS: KETOROLAC TROMETHAMINE INJ/PF 30 MG/1 ML SDV IV PRN ×3 (02:07→20:38)
[2016-06-25] MEDS: HEPARIN SOD (PORCINE) 5,000 UNIT/ML 1 ML SYRINGE SUBCUT SCH ×3 (05:15→22:01)
[2016-06-25] MEDS ORDERED: HYDROCHLOROTHIAZIDE 12.5 MG CAPSULE PO SCH (08:00)
[2016-06-25] MEDS ORDERED: ATENOLOL 50 MG TABLET PO SCH (08:00)
[2016-06-25] MEDS: PREGABALIN 75 MG CAPSULE PO SCH ×2 (09:24→22:01)
[2016-06-25] MEDS: DOCUSATE SODIUM 100 MG CAPSULE PO SCH ×2 (09:24→17:30)
[2016-06-25] MEDS: CHOLECALCIFEROL (D3) 1,000 UNIT TABLET PO SCH (09:24)
[2016-06-25] MEDS: LANSOPRAZOLE 30 MG TAB.RAP.DR PO SCH (09:24)
[2016-06-25] MEDS: ASPIRIN 325 MG TABLET PO SCH (09:24)
[2016-06-25] MEDS: MULTIVITAMIN TABLET PO SCH (09:24)
[2016-06-25] MEDS: VANCOMYCIN HCL 1,500 MG in DEXTROSE 5%-WATER 250 ML IV SCH (09:30)
[2016-06-25] MEDS ORDERED: ATENOLOL 50 MG TABLET PO ONE (09:30)
[2016-06-25] MEDS ORDERED: HYDROCHLOROTHIAZIDE 25 MG TABLET PO ONE (09:30)
[2016-06-25] MEDS: AMOXICILLIN TRIHYDRATE 500 MG CAPSULE PO SCH ×2 (11:14→14:24)
[2016-06-25] MEDS: OXYCODONE HCL IR 5 MG TABLET PO PRN ×2 (14:31→20:39)
--- NOTE | 2016-06-25 16:09 | PDOC DISCHARGE SUMMARY ---
General - Admit/Disc Date/PCP Admission Date/Primary Care Provider: 06/21/16 20:53 Discharge Date: 06/26/16 - Discharge Diagnosis (1) History of adrenal insufficiency Is this a current diagnosis for this admission?: YesSummary: Patient was admitted with hypotension and sepsis She was treated with high doses hydrocortisone initially at 100 mg every 8 Hydrocortisone has been tapered over the last few days She is to resume her prior hydrocortisone doses (2) Multiple fractures of rib involving four or more ribs Is this a current diagnosis for this admission?: YesSummary: Following a fall patient sustained multiple rib fracture and a fracture of the scapula The pain was extremely severe; it is more tolerable now Chest CTA was negative for pulmonary emboli or thoracic aortic dissection There was no evidence of pneumothorax or hemothorax follow-up chest x-ray on 06/23 showed minimal left pleural effusion (3) Sepsis associated hypotension Is this a current diagnosis for this admission?: YesSummary: Sepsis likely secondary to urinary tract infection E faecalis was cultured Patient was initially treated with vancomycin; she will be discharged on ampicillin 500 mg qid for 7 days MARTY for ampicillin was less than 2 (4) Severe pain Is this a current diagnosis for this admission?: YesSummary: Patient is using incentive spirometer, intermittent doses of Toradol and small doses of oxycodone as needed - Additional Information Resuscitation Status: Full Code Home Medications: Acetaminophen [Tylenol 325 mg Tablet] 325 mg PO Q6HP PRN 06/21/16 Aspirin [Aspirin 325 mg Tablet] 325 mg PO DAILY 06/21/16 Bisoprolol Fumarate/Hctz [Ziac 2.5-6.25 mg Tablet] 1 tab PO QAM 06/21/16 Cholecalciferol (Vitamin D3) [Vitamin D3 1000 Unit Tablet] 1,000 unit PO DAILY 06/21/16 Docusate Sodium [Dulcolax Stool Softener] 1 cap PO PRN PRN 06/21/16 Hydrocortisone [Cortef 10 mg Tablet] 10 mg PO QPM 06/21/16 Hydrocortisone [Cortef] 20 mg PO DAILY 06/21/16 Lansoprazole [Prevacid 30 mg Odt Tablet] 30 mg PO QAM 06/21/16 Letrozole [Femara 2.5 mg Tablet] 2.5 mg PO QPM 06/21/16 Lisinopril [Prinivil 5 mg Tablet] 5 mg PO QPM 06/21/16 Milnacipran HCl [Savella] 50 mg PO BID 06/21/16 Multivits-Min/Iron/FA/Lutein [Centrum Silver Women Tablet] 1 tab PO DAILY Pregabalin [Lyrica 75 mg Capsule] 75 mg PO Q12 06/21/16 Ketorolac Tromethamine [Toradol 10 mg Tablet] 10 mg PO Q8HP PRN #30 tablet 06/25 Oxycodone HCl [Oxy-Ir 5 mg Tablet] 10 mg PO Q4HP PRN #30 tablet 06/25/16 History of Present Illness Patient complains of: generalised weakness , hypotension , fever History of Present Illness: ASA CARLSON is a 71 year old female with a past Sunil history of adrenal insufficiency, rest cancer status post left-sided mastectomy remotely, pulmonary emboli and fibromyalgia. Who had been her usual state of health until approximately 48 hours prior to presentation state she had some generalized weakness and fever of 101.0. She attributed this to a possible urinary tract infection despite lack of polyuria, dysuria or malodorous urine. She subsequently sustained a fall preceded by weakness and dizziness without palpitations or headache, and denied loss of consciousness or head trauma. However she was unable to stand and was on the ground for at least 3 hours and brought to the emergency room after discovered by her neighbor with questionable slurred speech and left-sided chest pain. In the emergency room she is found to have hypotension in the 80s systolic with tachycardia and left-sided rib fractures [address]33 and 8 without a flail chest. Nor is there an obvious source of infection despite an elevated white blood cell count of 27. She started on an IV fluid challenge IV Solu-Cortef IV antibiotics and referred to the hospitalist for admission. Patient otherwise denies recent fall, she was treated for a right-sided dental abscess approximately a month ago which has subsequently resolved she denies any change in home medications. She appears nontoxic Hospital Course Hospital Course: Patient was admitted after she sustained a fall Should multiple rib fractures ; fracture of the scapula and was clinically and septic shock Patient had evidence of urinary tract infection, unlikely was adrenal insufficient She did not have any complications from the fall; no evidence of hemo or pneumothorax Septic shock resolved She still has a lot of residual pain and ambulatory dysfunction; and will be discharged to short-term rehabilitation Physical Exam Vital Signs: Temp Pulse Resp BP Pulse Ox 98.8 F 76 16 142/66 H 97 06/25/16 15:02 06/25/16 15:02 06/25/16 15:02 06/25/16 15:02 06/25/16 15:02 Intake & Output 06/24/16 06/25/16 06/26/16 00:59 00:59 00:59 Intake Total 2347 2080 250 Output Total 925 600 Balance 1422 1480 250 Weight 91.4 kg 90.1 kg 89.9 kg General appearance: PRESENT: no acute distress, well-developed, well-nourished Head exam: PRESENT: atraumatic, normocephalic Eye exam: PRESENT: conjunctiva pink, EOMI, PERRLA. ABSENT: scleral icterus Ear exam: PRESENT: normal external ear exam Mouth exam: PRESENT: moist, tongue midline Neck exam: ABSENT: carotid bruit, JVD, lymphadenopathy, thyromegaly Respiratory exam: PRESENT: chest wall tenderness, clear to auscultation taryn. ABSENT: rales, rhonchi, wheezes Cardiovascular exam: PRESENT: RRR. ABSENT: diastolic murmur, rubs, systolic murmur Pulses: PRESENT: normal dorsalis pedis pul Vascular exam: PRESENT: normal capillary refill GI/Abdominal exam: PRESENT: normal bowel sounds, soft. ABSENT: distended, guarding, mass, organolmegaly, rebound, tenderness Rectal exam: PRESENT: deferred Extremities exam: PRESENT: full ROM. ABSENT: calf tenderness, clubbing, pedal edema Neurological exam: PRESENT: alert, awake, oriented to person, oriented to place , oriented to time, oriented to situation, CN II-XII grossly intact. ABSENT: motor sensory deficit Psychiatric exam: PRESENT: appropriate affect, normal mood. ABSENT: homicidal ideation, suicidal ideation Skin exam: PRESENT: dry, intact, warm. ABSENT: cyanosis, rash Results Laboratory Results: 06/24/16 03:55 06/24/16 03:55 06/21/16 23:54 Clean Catch Midstream Urine Culture - Final Enterococcus Faecalis(Group D) 06/23/16 06/24/16 05:20 03:55 WBC 16.5 H Hgb 9.0 L Hct 27.0 L ESR 76 H 06/21/16 18:23 Blood Culture - Preliminary Blood NO GROWTH AFTER 72 HOURS 06/21/16 16:55 Blood Culture - Preliminary Blood NO GROWTH AFTER 72 HOURS Impressions: Head CT 06/21/16 17:51 IMPRESSION: MILD CHRONIC CHANGES OF ATROPHY AND MICROVASCULAR ISCHEMIA. NO ACUTE PROCESS. Shoulder X-Ray 06/21/16 17:54 IMPRESSION: 1. Osteopenia. 2. Multiple left-sided rib fractures. Chest/Abdomen CTA 06/22/16 00:00 IMPRESSION: No CT angio evidence of acute pulmonary emboli or thoracic aortic dissection. Multiple acute nondisplaced left posterior rib fractures. Left scapular wing fracture. Post therapeutic changes with left mastectomy 4.3 x 4.2 cm mass left lower pole thyroid. Chest X-Ray 06/23/16 00:00 IMPRESSION: Interval small left effusion and basilar opacities. No pneumothorax. Venous access catheter unchanged. Left rib fractures cannot be visualized on chest radiograph. Plan Discharge Plan: Discharge to [facility] when a bed is available Time Spent: Greater than 30 Minutes
[2016-06-25] MEDS: LETROZOLE 2.5 MG TABLET PO SCH (17:30)
[2016-06-25] MEDS: LISINOPRIL 5 MG TABLET PO SCH (17:30)
[2016-06-25] MEDS: AMPICILLIN TRIHYD 500 MG CAPSULE PO SCH ×2 (18:28→22:01)
[2016-06-25 20:40] LABS: FOLATE > 20.00 ng/mL (>2.76)
[2016-06-26] MEDS: HEPARIN SOD (PORCINE) 5,000 UNIT/ML 1 ML SYRINGE SUBCUT SCH (07:02)
[2016-06-26] MEDS: KETOROLAC TROMETHAMINE INJ/PF 30 MG/1 ML SDV IV PRN (07:31)
[2016-06-26] MEDS: LANSOPRAZOLE 30 MG TAB.RAP.DR PO SCH (07:32)
[2016-06-26] MEDS: OXYCODONE HCL IR 5 MG TABLET PO PRN ×2 (07:32→13:24)
[2016-06-26] MEDS ORDERED: ATENOLOL 50 MG TABLET PO SCH (08:00)
[2016-06-26] MEDS ORDERED: HYDROCHLOROTHIAZIDE 25 MG TABLET PO SCH (08:00)
[2016-06-26] MEDS: MULTIVITAMIN TABLET PO SCH (09:27)
[2016-06-26] MEDS: HYDROCORTISONE SOD SUCCINATE INJ/PF 100 MG/2 ML SDV IV SCH (09:27)
[2016-06-26] MEDS: ASPIRIN 325 MG TABLET PO SCH (09:27)
[2016-06-26] MEDS: CHOLECALCIFEROL (D3) 1,000 UNIT TABLET PO SCH (09:27)
[2016-06-26] MEDS: PREGABALIN 75 MG CAPSULE PO SCH (09:27)
[2016-06-26] MEDS: AMPICILLIN TRIHYD 500 MG CAPSULE PO SCH (09:27)
[2016-06-26] MEDS: DOCUSATE SODIUM 100 MG CAPSULE PO SCH (09:27)
[2016-06-26 13:19] VITALS: BP 134/57
--- NOTE | 2016-06-26 18:52 | PDOC PROGRESS REPORT ---
Subjective Progress Note for:: 06/26/16 Subjective:: Patient admitted after a fall at home and found to have rib fractures also noted to have an Enterococcus faecalis penicillin susceptible urinary tract infection. She was admitted to the hospital and treated with appropriate antibiotics with good improvement in her clinical condition. She is stable for discharge to a [facility] for ongoing [facility]. Please see Dr. Hall discharge summary from yesterday for full details. I evaluated the patient today and found her to be hemodynamically stable for discharge at this time. She is alert and oriented and breathing without difficulty oxygenating well without supplemental oxygen she has bruising over the left ribs posteriorly where she fell but no step-off deformities or crepitus only mild inspiratory crackles at bases that clear with deep inspiration, she is in a regular rate and rhythm, alert and oriented to person place and time. She is stable for transfer at this time. Physical Exam Vital Signs: Temp Pulse Resp BP Pulse Ox 99.2 F 75 19 134/57 H 100 06/26/16 12:13 06/26/16 12:13 06/26/16 12:13 06/26/16 12:13 06/26/16 12:13 Intake & Output 06/25/16 06/26/16 06/27/16 06:59 06:59 06:59 Intake Total 2080 2770 474 Output Total 600 1400 300 Balance 1480 1370 174 Weight 89.9 kg 90.7 kg Results Laboratory Results: 06/24/16 03:55 06/24/16 03:55 06/25/16 06/25/16 18:35 18:35 Retic Count (auto) 1.75 Absolute Retic 0.055 Iron 19 L TIBC 251 % Saturation 8 Ferritin 124.00 Vitamin B12 810.0 Folate > 20.00 Reviewed and stable Impressions: Head CT 06/21/16 17:51 IMPRESSION: MILD CHRONIC CHANGES OF ATROPHY AND MICROVASCULAR ISCHEMIA. NO ACUTE PROCESS. Shoulder X-Ray 06/21/16 17:54 IMPRESSION: 1. Osteopenia. 2. Multiple left-sided rib fractures. Chest/Abdomen CTA 06/22/16 00:00 IMPRESSION: No CT angio evidence of acute pulmonary emboli or thoracic aortic dissection. Multiple acute nondisplaced left posterior rib fractures. Left scapular wing fracture. Post therapeutic changes with left mastectomy 4.3 x 4.2 cm mass left lower pole thyroid. Chest X-Ray 06/23/16 00:00 IMPRESSION: Interval small left effusion and basilar opacities. No pneumothorax. Venous access catheter unchanged. Left rib fractures cannot be visualized on chest radiograph. Status: Imported from PACS
== END 2016-06-26 14:25 | DRG 872 ==
LOC: ER 16:31 → EH 20:53 → UNDOADMIN 21:02 → EH 21:02 → 3N 06-22 01:25
PROVIDERS: ADMIT Internal Medicine; ATTEND Internal Medicine
PROC: 02HV33Z Insertion of Infusion Device into Superior Vena Cava, Percutaneous Approach (ICD-10-PCS; principal; 2016-06-21)
DX: A41.9 Sepsis, unspecified organism (principal); N39.0 Urinary tract infection, site not specified; S22.42XA Multiple fractures of ribs, left side, initial encounter for closed fracture; B95.2 Enterococcus as the cause of diseases classified elsewhere; S42.192A Fracture of other part of scapula, left shoulder, initial encounter for closed fracture; W19.XXXA Unspecified fall, initial encounter; Y93.9 Activity, unspecified; Y92.009 Unspecified place in unspecified non-institutional (private) residence as the place of occurrence of the external cause; Y99.9 Unspecified external cause status; M19.90 Unspecified osteoarthritis, unspecified site; M79.7 Fibromyalgia; Z79.82 Long term (current) use of aspirin; Z79.899 Other long term (current) drug therapy; Z86.711 Personal history of pulmonary embolism; Z90.12 Acquired absence of left breast and nipple; Z85.3 Personal history of malignant neoplasm of breast
CPT/HCPCS: 36415; 51702; 70450; 71010; 71275; 80048; 80053; 80202; 81001; 82565; 82607; 82728; 82746; 82803; 83540; 83550; 83605; 83735; 85025; 85045; 85610; 85652; 86140; 87040; 87086; 87088; 87186; 93005; 93010; 94799; 96361; 96365; 96367; 96368; 96375; 99291; C1751; G8978-GP; G8979-GP; J0696; J1644; J1720; J1885; J1956; J3370; J3490; J7030; J7060; J7120

== ENCOUNTER 2016-08-09 10:19 | Emergency (ER) | payer MEDICARE ==
[2016-08-09] MEDS ORDERED: HYDROCORTISONE SOD SUCCINATE INJ/PF 100 MG/2 ML SDV ONE (10:31)
[2016-08-09] MEDS ORDERED: PROPOFOL 100 ML IV ONE (10:35)
[2016-08-09] MEDS ORDERED: NICARDIPINE HCL RTU, ISO-OS 20 MG/200 ML RTUINJ IV ONE (10:35)
[2016-08-09] MEDS ORDERED: PROPOFOL 100 ML IV PRN (10:43)
[2016-08-09] MEDS ORDERED: HYDROCORTISONE SOD SUCCINATE INJ/PF 100 MG/2 ML SDV IV ONE (10:43)
[2016-08-09] MEDS ORDERED: NORMAL SALINE 1000 ML 1,000 ML IV ONE (10:44)
[2016-08-09] MEDS ORDERED: ROCURONIUM BROMIDE INJ 50 MG/5 ML VIAL IV ONE ×2 (10:44→14:42)
[2016-08-09] MEDS ORDERED: KETAMINE HCL INJ 500 MG/10 ML VIAL IV ONE (10:44)
[2016-08-09] MEDS ORDERED: NOREPINEPHRINE BITARTRATE INJ/PF 4 MG/4 ML SDV IV ONE (10:59)
[2016-08-09] MEDS ORDERED: VANCOMYCIN HCL INJ 1000 MG VIAL IV ONE (11:52)
[2016-08-09] MEDS ORDERED: PIPERACILLIN/TAZOBACTAM 3.375 GM VIAL IV ONE (11:52)
[2016-08-09] MEDS ORDERED: DEXTROSE 5%-WATER 250 ML with NOREPINEPHRINE BITARTRATE 4 MG IV PRN ×2 (11:52)
[2016-08-09] MEDS ORDERED: ETOMIDATE INJ/PF 20 MG/10 ML SDV IV ONE (12:04)
--- NOTE | 2016-08-09 12:46 | ER Document Report ---
ED Resuscitation - General Chief Complaint: Unresponsive Stated Complaint: UNRESPONSIVE Notes: The patient is a 71-year-old female, past medical history adrenal insufficiency , breast cancer, prior PE, presents by EMS after she was found unresponsive by her wound care nurse earlier today. Her last known normal was last night at 2200 when she went to bed. EMS arrived and she was tachypneic, hypotensive and cyanotic. She was bagged while she is being transported to the emergency room. Unable to obtain any additional information. TRAVEL OUTSIDE OF THE [place] IN LAST 30 DAYS: No - Related Data Allergies/Adverse Reactions: No Known Allergies Allergy (Unverified 06/21/16 18:06) Past Medical History - General Information source: Relative, Emergency Med Personnel - Social History Smoking Status: Unknown if Ever Smoked Family History: Reviewed & Not Pertinent, Hypertension - Past Medical History Cardiac Medical History: Reports: Hx Hypertension Malignancy Medical History: Reports: Hx Breast Cancer Musculoskeltal Medical History: Reports Hx Arthritis - OA Past Surgical History: Reports: Hx Mastectomy - Immunizations Hx Diphtheria, Pertussis, Tetanus Vaccination: Yes Review of Systems - Review of Systems Notes: Unable to obtain ROS due to patient's condition. -: Yes ROS unobtainable due to patient's medical condition Physical Exam - Vital signs Vitals: Pulse Ox 100 08/09/16 10:30 - Notes Notes: PHYSICAL EXAMINATION: GENERAL: Severe respiratory distress. Unresponsive to painful stimulation. HEAD: Atraumatic, normocephalic. EYES: Right pupil dilated and fixed, left pupil reactive ENT: nares patent, oropharynx clear without exudates. Moist mucous membranes. NECK: supple without lymphadenopathy LUNGS: Breath sounds clear to auscultation bilaterally and equal. No wheezes rales or rhonchi. Shallow tachypneic breaths HEART: Tachycardic ABDOMEN: Soft, nontender, normoactive bowel sounds. No masses appreciated. EXTREMITIES: No edema. Cyanotic peripheral tremor days. NEUROLOGICAL: No spontaneous movement. GCS 3. SKIN: Dressing over left chest wall without drainage or surrounding erythema. Course - Re-evaluation Re-evalutation: Patient intubated immediately on arrival to the emergency room for respiratory distress and no mental status. Patient with unequal pupils and no response to stimuli. CT head obtained which shows a large right MCA CVA. Spoke to daughter and son-in-law who are at bedside about the poor prognosis and about the patient's wishes. The daughter said that the patient would not want to live on a ventilator the rest of her life and her wishes would be to make her comfort care if she had no quality of life. She spoke to her brother who is 8 hours away and he agrees. Patient will be transitioned to comfort care. 08/09/16 14:12 Patient was extubated and pressors were turned off. She became bradycardic and then asystolic. Patient's time of was 14:12. Daughter and son-in-law in room during time of . I filled out the Certificate. - Vital Signs Vital signs: Temp Pulse Resp BP Pulse Ox 100 08/09/16 10:30 - Diagnostic Test Radiology reviewed: Image reviewed, Reports reviewed Radiology results interpreted by me: CT Head: Large right MCA infarction, nasal bone fracture Procedures - Intubation Orotracheal Airway evaluation: Normal anatomy Mallampati Classification: Class 1 Medications: Ketamine, Other - Rocuronium Intubation method: Orotracheal Blade type: Carlos Blade size: 4 Equipment used: Glidescope ETT size: 7.5 ETT secured at: Teeth ETT secured at (cm): 24 Breath Sounds after Intubation: Equal End tidal CO2 confirmed: Yes Ventilator settings: AC Tidal volume: 450 FiO2: 100 Respirations: 16 PEEP: 8 Post Intubation Xray: Yes Intubation Complications: No complications Critical Care Note - Critical Care Note Total time excluding time spent on procedures (mins): 90 Discharge - Discharge Clinical Impression: Acute right MCA stroke Disposition: Referrals: JUDI SUBRAMANIAN PA [Primary Care Provider] - Follow up as needed
[2016-08-09] MEDS ORDERED: MORPHINE SULFATE 10 MG/ML INJ IV ONE (12:52)
[2016-08-09 21:46] VITALS: BP 166/72
== END 2016-08-09 17:30 | disposition expired ==
LOC: ER 10:19
PROC: 0BH17EZ Insertion of Endotracheal Airway into Trachea, Via Natural or Artificial Opening (ICD-10-PCS; principal; 2016-08-09)
DX: I63.9 Cerebral infarction, unspecified (principal); S02.2XXA Fracture of nasal bones, initial encounter for closed fracture; X58.XXXA Exposure to other specified factors, initial encounter; I10 Essential (primary) hypertension; Z85.3 Personal history of malignant neoplasm of breast; Z86.711 Personal history of pulmonary embolism
CPT/HCPCS: 99291; 99292; 96374; 71010; 70450; 70486; 71275; 94002; 31500; J3490; J2270